=== PATIENT | male | born 1960 | race Hispanic/Latino ===

== ENCOUNTER 2021-02-28 06:35 | Day surgery (SDC) | payer OTHER ==
[2021-02-28 07:21] LABS: Basophils % (Auto) 0.5 % (0.0-1.8); Eosinophils % (Auto) 1.5 % (0.0-4.3); Lymphocytes % (Auto) 32.5 % (13.4-35.0); Mean Corpuscular HGB Conc 31 % (32-34); Mean Corpuscular Volume 76 fl (84-94); Monocytes # (Auto) 0.3 K/mm3 (0.0-0.8); Monocytes % (Auto) 9.8 % (0.0-7.3); Platelet Count 175 K/mm3 (140-440); Red Blood Count 5.97 M/mm3 (3.65-5.03); Red Cell Distribution Width 19.5 % (13.2-15.2)
[2021-02-28] MEDS ORDERED: SODIUM CHLORIDE 0.9% 1000 ML 1,000 ML IV SCH (07:30)
[2021-02-28 07:31] LABS: INR 0.97 (0.87-1.13); Partial Thromboplastin Time 29.6 Sec. (24.2-36.6)
[2021-02-28 07:32] LABS: Hematocrit 45.2 % (35.5-45.6)
[2021-02-28 07:35] LABS: BUN/Creatinine Ratio 23; Blood Urea Nitrogen 27 mg/dL (9-20); Calcium 8.7 mg/dL (8.4-10.2); Hemolysis Index 15
--- NOTE | 2021-02-28 08:07 | Anesthesia Day of Surgery ---
Anesthesia Day of Surgery - Day of Surgery Patient Examined: Yes Patient H&P Reviewed: Yes Patient is NPO: Yes
--- NOTE | 2021-02-28 08:07 | Anesthesia Consultation ---
Anesthesia Consult and Med Hx Date of service: 02/28/21 - Airway Anesthetic Teeth Evaluation: Poor (periodontal disease, denies loose teeth), Partials (upper) ROM Head & Neck: Adequate Mental/Hyoid Distance: Adequate Mallampati Class: Class II Intubation Access Assessment: Probably Good - Pre-Operative Health Status ASA Pre-Surgery Classification: ASA3 Proposed Anesthetic Plan: MAC - Pulmonary Hx Smoking: No Hx Asthma: Yes (exercise induced; no recent inhaler use) Hx Respiratory Symptoms: No - Cardiovascular System Hx Hypertension: No Hx Heart Attack/AMI: No Hx Percutaneous Transluminal Coronary Angioplasty (PTCA): No Hx Cardia Arrhythmia: Yes (a-fib) Hx Pacemaker: No Hx Internal Defibrillator: No - Central Nervous System CVA: No - Endocrine Hx Renal Disease: Yes (CKD 2) Hx Liver Disease: No Hx Insulin Dependent Diabetes: No Hx Non-Insulin Dependent Diabetes: No Hx Hypothyroidism: Yes - Other Systems Hx Obesity: Yes (BMI 31) - Additional Comments Anesthesia Medical History Comments: No hx anesthetic complications.
[2021-02-28] MEDS ORDERED: propofoL 200 MG/20 ML VIAL IV ONE (08:18)
--- NOTE | 2021-02-28 08:33 | Short Stay Summary ---
Short Stay Documentation Date of service: 02/28/21 - History Past Medical History: other (History of atrial flutter chronic kidney disease dyspnea on exertion dilated cardiomyopathy EtOH abuse and polycythemia) Social history: alcohol abuse - Allergies and Medications Current Medications: Allergies hydrocodone Allergy (Verified 02/28/21 07:12) Rash Home Medications Medication Instructions Recorded Confirmed Last Taken Type Alfuzosin HCl [Alfuzosin HCl ER] 10 mg PO HS 02/28/21 02/28/21 02/27/21 History 10 mg Anastrozole [Arimidex] 1 mg PO Q72H 02/28/21 02/28/21 02/25/21 History 1 mg Apixaban [Eliquis] 5 mg PO BID 02/28/21 02/28/21 02/27/21 History 5 mg Cannabidiol (Cbd) [Epidiolex] 1 ampul PO HS 02/28/21 02/28/21 02/27/21 History 1 ampule Fluticasone [Flonase] 2 sprays INNOSTRIL DAILY 02/28/21 02/28/21 02/27/21 History 2 sprays Lisinopril [Zestril TAB] 2.5 mg PO DAILY 02/28/21 02/28/21 02/27/21 History 2.5mg Metoprolol [Lopressor] 12.5 mg PO BID 02/28/21 02/28/21 02/27/21 History 12.5mg Thyroid,Pork [Thyroid] 30 mg PO QDAY 02/28/21 02/28/21 02/27/21 History 30 mg Valerian Root 2 tab PO HS 02/28/21 02/28/21 02/27/21 History 2 tab traZODone [Desyrel] 2 tab PO DAILY 02/28/21 02/28/21 02/27/21 History 2 tab Active Medications Sodium Chloride (Nacl 0.9% 1000 Ml) 1,000 mls @ 42 mls/hr IV DIRECT STUART - Physical exam General appearance: no acute distress Integumentary: no rash HEENT: PERRLA Lungs: Clear to auscultation Heart: No murmurs Gastrointestinal: normal Extremities: no ischemia Neurological: Normal gait, Normal speech, Normal tone - Brief post op/procedure progress note Date of procedure: 02/28/21 Pre-op diagnosis: Atrial flutter Procedure: Cardioversion Estimated blood loss: none Condition: stable - Disposition Condition at discharge: Good Disposition: 01 HOME / SELF CARE / HOMELESS Short Stay Discharge Plan Activity: advance as tolerated Diet: low fat, low cholesterol, low salt Wound: open to air, keep clean and dry, per your surgeon's advice Follow up with: ROSE MARIE PICKETT MD [Primary Care Provider] - 7 Days ANGEL HAILE MD [Staff Physician] - 7 Days (Patient should follow-up with Dr. Angel Haile on 05/11/2021 at 8:[address] [facility] location. #[id number])
[2021-02-28] MEDS ORDERED: ATROPINE 0.1% (1 MG/10 ML) CARDIAC SYRINGE ONE (08:41)
--- NOTE | 2021-02-28 09:07 | Post Anesthesia Evaluation ---
- Post Anesthesia Evaluation Patient Participated: Yes Airway Patent: Yes Stable Respiratory Function: Yes Nausea/Vomiting: No Temp > 96.8F: Yes Pain Manageable: Yes Adequeate Hydration: Yes Anesthesia Complications: No
[2021-02-28 14:16] VITALS: BP 114/84
--- NOTE | 2021-03-01 05:29 | Cardiac Catherization Report ---
DATE OF PROCEDURE: 02/28/2021 [facility] REFERRING PHYSICIAN: Angel Mejia MD. INDICATIONS FOR PROCEDURE: The patient is a pleasant 60-year-old gentleman with a history of atrial fibrillation/flutter for some time, on anticoagulation uninterrupted for greater than 3 months, here for elective cardioversion. Risks, benefits and alternatives discussed at length prior to obtaining informed consent. PROCEDURE IN DETAIL: The patient was brought to the cardioversion suite in a postabsorptive state. Anesthesia was at bedside throughout. We confirmed the patient has not missed any doses of his anticoagulation. Once adequate sedation was achieved, we used 200 biphasic joules to deliver a single shock with successful conversion to sinus rhythm from atrial flutter. No complications. The patient tolerated the procedure well. ____ recover the patient. CONCLUSIONS: Successful elective electrical cardioversion of atrial fibrillation with resumption of sinus rhythm. No immediate complications. The patient will continue anticoagulation. Follow up with me in the office. Results of procedure explained to the patient and his who is here. Stable cardiac status. TID: [id number] RECEIPT: [id number] DANK/ALINE/ROSENDA
--- NOTE | 2021-03-03 09:57 | Electrocardiograph Report ---
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
--- NOTE | 2021-03-03 09:58 | Electrocardiograph Report ---
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
== END 2021-02-28 10:55 | disposition home or self-care (01) ==
LOC: CATHLABREC 06:35
PROVIDERS: ATTEND Internal Medicine
DX: I48.92 Unspecified atrial flutter (principal); I42.0 Dilated cardiomyopathy; J45.909 Unspecified asthma, uncomplicated; N18.2 Chronic kidney disease, stage 2 (mild); E03.9 Hypothyroidism, unspecified; E66.9 Obesity, unspecified; E78.00 Pure hypercholesterolemia, unspecified; N40.0 Benign prostatic hyperplasia without lower urinary tract symptoms; Z79.899 Other long term (current) drug therapy; Z98.890 Other specified postprocedural states; Z88.8 Allergy status to other drugs, medicaments and biological substances
CPT/HCPCS: 36415; 80048; 85025; 85610; 85730; 92960; 93005; J2704; J7030; J7120; Q0162; J0461